=== PATIENT | male | born 1995 | race Caucasian/White ===

== ENCOUNTER 2020-08-27 09:14 | Emergency (ER) | payer OTHER ==
[~2020-08-27] VITALS: Ht 170.2 cm; Wt 99.8 kg
[2020-08-27 09:16] VITALS: BP 126/74
--- NOTE | 2020-08-27 09:22 | NUR ---
PT AMBULATED TO BED 9.
--- NOTE | 2020-08-27 09:30 | NUR ---
25 Y/O MALE FROM HOME PRESENTS TO ED C/O SOB X 2 DAYS. PT STATES HE HAS RAN OUT OF HIS NEBULIZER TX LAST NIGHT, LAST NEB TX AT 10:30, WOKE UP THIS MORNING WITH INCREASED SOB, TOOK ALBUTEROL AND FLOVENT THIS MORNING, BUT STATES NO RELIEF. PT STATES HE HAS ALSO BEEN HAVING A PRODUCTIVE COUGH WITH YELLOW PHLEGM X2 DAYS. AOX4, SOB, AND WHEEZING THROUGHOUT LUNG STOKES, CAP REFILL 2 SEC, SKIN NORMAL FOR ETHNICITY, NO SIGNS OF RESP DISTRESS, NO USE OF ACCESSORY MUSCKLES NOTED. O2 SAT 93% ON ADMISSION. DENIES N/V/D OR CHILLS. PT STABLE AT THIS TIME. DR. DAVIS AWARE OF PT STATUS PMH: ASTHMA NKDA
--- NOTE | 2020-08-27 09:30 | NUR ---
Dr. Cedeno is evaluating the patient at bedside.
[2020-08-27] MEDS ORDERED: predniSONE 20 MG TAB PO ONE (09:45)
[2020-08-27] MEDS ORDERED: ALBUTEROL HFA MDI 90 MCG/ACTUATION 8 GM INH ONE (09:45)
--- NOTE | 2020-08-27 09:56 | NUR ---
Breathing treatment administered at bedside by respiratory therapist.
[2020-08-27 11:53] VITALS: BP 132/78
--- NOTE | 2020-08-27 11:53 | NUR ---
Patient discharged with v/s stable. Written and verbal after care instructions given and explained. Patient alert, oriented and verbalized understanding of instructions. Ambulatory with steady gait. All questions addressed prior to discharge. ID band removed. Patient advised to follow up with PMD. Rx of ALBUTEROL SULFATE, PREDNISONE given. Patient educated on indication of medication including possible reaction and side effects. Opportunity to ask questions provided and answered.
== END 2020-08-27 11:53 | disposition home or self-care (01) ==
LOC: MED 09:14
DX: J45.901 Unspecified asthma with (acute) exacerbation (principal); Z20.828 Contact with and (suspected) exposure to other viral communicable diseases
CPT/HCPCS: 71045; 94664; 99284; J7512; U0003

== ENCOUNTER 2021-02-04 07:32 | Emergency (ER) | payer OTHER ==
[~2021-02-04] VITALS: Ht 170.2 cm; Wt 82.6 kg
[2021-02-04 07:38] VITALS: BP 124/72
--- NOTE | 2021-02-04 07:40 | NUR ---
PT AMBULATED TO BED 8
--- NOTE | 2021-02-04 07:43 | NUR ---
25 y.o male presents to the ED with SOB. pt states it started yesterday and has done 2 nebulizer treatments. RR normal but shallow, wheezes throughout lungs inspiratory and expiratory. AAOx4 PMH: Asthma Allergies: NKA
--- NOTE | 2021-02-04 07:43 | NUR ---
at bedside for examination
--- NOTE | 2021-02-04 07:48 | NUR ---
RT at bedside
[2021-02-04] MEDS ORDERED: ALBUTEROL SULFATE/IPRATROPIU 3 ML SOL IH ONE ×2 (07:50→08:40)
[2021-02-04] MEDS ORDERED: predniSONE 20 MG TAB PO ONE (07:50)
--- NOTE | 2021-02-04 07:54 | NUR ---
xray at bedside
--- NOTE | 2021-02-04 08:36 | NUR ---
at bedside for re-evaluation of pt condition
--- NOTE | 2021-02-04 08:38 | NUR ---
pt given blanket and water
--- NOTE | 2021-02-04 08:49 | NUR ---
RT at pt bedside for breathing TX.
--- NOTE | 2021-02-04 08:49 | NUR ---
RT at bedside
[2021-02-04] MEDS ORDERED: PRED20TA5 PO (08:55)
[2021-02-04] MEDS ORDERED: GUAI-646 PO (08:55)
[2021-02-04] MEDS ORDERED: ALBU0.0912 IH (08:55)
[2021-02-04 09:08] VITALS: BP 128/80
--- NOTE | 2021-02-04 09:08 | NUR ---
Patient discharged with v/s stable. Written and verbal after care instructions given and explained. Patient alert, oriented and verbalized understanding of instructions. Ambulatory with steady gait. All questions addressed prior to discharge. ID band removed. Patient advised to follow up with PMD. Rx of albuterol sulfate, guaifenesin, prednisone given. Patient educated on indication of medication including possible reaction and side effects. Opportunity to ask questions provided and answered.
== END 2021-02-04 09:08 | disposition home or self-care (01) ==
LOC: MED 07:32
DX: J45.901 Unspecified asthma with (acute) exacerbation (principal); J20.9 Acute bronchitis, unspecified
CPT/HCPCS: 71045; 94640; 99284; J7512

== ENCOUNTER 2021-07-16 21:37 | Emergency (ER) | payer OTHER ==
[~2021-07-16 21:37] MED LIST: ALBU0.0912 IH; GUAI-646 PO; PRED20TA5 PO
--- NOTE | 2021-07-16 22:15 | NUR ---
CALLED TO TRIAGE, NO ANSWER
--- NOTE | 2021-07-16 22:26 | NUR ---
CALLED TO TRIAGE, NO ANSWER
--- NOTE | 2021-07-16 23:00 | NUR ---
NO ANSWER X 3, LWBS
== END 2021-07-16 22:20 | disposition left against medical advice (07) ==
LOC: MED 21:37
DX: Z53.21 Procedure and treatment not carried out due to patient leaving prior to being seen by health care provider (principal)

== ENCOUNTER 2022-08-24 08:06 | Emergency (ER) | payer OTHER ==
[~2022-08-24] VITALS: Ht 167.6 cm; Wt 93.4 kg
[~2022-08-24 08:06] MED LIST changes: -GUAI-646 PO; +MUC600 PO
[2022-08-24 08:12] VITALS: BP 107/67
--- NOTE | 2022-08-24 08:12 | NUR ---
Pt ambulated to bed 03 with steady gait.
[2022-08-24] MEDS ORDERED: ALBUTEROL SULFATE/IPRATROPIU 3 ML SOL IH ONE (08:15)
--- NOTE | 2022-08-24 08:22 | NUR ---
Shashi garcia in [facility] - 08/24/22 at 0823 by CRISTIAN Pt ambulated to bed 03 with steady gait.
--- NOTE | 2022-08-24 08:34 | NUR ---
27M presents to ED with c/o SOB x1day. Pt reports hx of asthma, ran out of albuterol inhaler, used nebulizer tx at home with relief. Pt states he has been sick with a cough since yesterday, had 3 episodes of vomiting yesterday, denies N/V today. Pt denies chest pain and dizziness. Pt placed on bedside monitor, changed into a gown.
[2022-08-24] MEDS ORDERED: MUC600 PO (09:21)
[2022-08-24] MEDS ORDERED: ALBU0.0912 INH (09:21)
--- NOTE | 2022-08-24 09:29 | NUR ---
Patient discharged with v/s stable. Written and verbal after care instructions ABOUT ASTHMA given and explained. Patient alert, oriented and verbalized understanding of instructions. Ambulatory with steady gait. All questions addressed prior to discharge. ID band removed. Patient advised to follow up with PMD. Rx of ALBUTEROL SULFATE AND MUCINEX given. Patient educated on indication of medication including possible reaction and side effects. Opportunity to ask questions provided and answered.
== END 2022-08-24 09:29 | disposition home or self-care (01) ==
LOC: MED 08:06
DX: J45.901 Unspecified asthma with (acute) exacerbation (principal); Z72.89 Other problems related to lifestyle
CPT/HCPCS: 94640; 99283